=== PATIENT | female | born 1970 | race African-American/Black ===

== ENCOUNTER 2023-05-05 16:31 | Emergency (ER) | payer BC ==
[~2023-05-05] VITALS: Ht 154.9 cm; Wt 67.1 kg
[2023-05-05 16:45] VITALS: BP_SYST 124; PULSE 74; RESP 18; TEMP 97.9; O2SAT 98
[2023-05-05 17:52] LABS: BASOPHILS # (AUTO) 0.1 K/uL (0.0-0.2); BASOPHILS % (AUTO) 0.7 % (0.0-2.0); EOSINOPHILS % (AUTO) 0.3 % (0.0-4.0); HEMATOCRIT 36.2 % (36-48); HEMOGLOBIN 12.1 g/dL (12.0-16.0); LYMPHOCYTES # (AUTO) 1.4 K/uL (1.0-5.5); LYMPHOCYTES % (AUTO) 15.8 % (20.5-51.5); MEAN CORPUSCULAR HEMOGLOBIN 28 pg (27-31); MEAN CORPUSCULAR HGB CONC 33 % (32-36); MEAN CORPUSCULAR VOLUME 84 fL (79.0-98.0); MONOCYTES # (AUTO) 0.7 K/uL (0.0-1.0); NEUTROPHILS # (AUTO) 6.6 K/uL (1.8-7.7); NEUTROPHILS % (AUTO) 75.2 % (40.0-70.0); PLATELET COUNT (AUTO) 440 K/uL (130-430); RED BLOOD CELL COUNT(AUTO) 4.31 MIL/uL (4.2-6.2); RED CELL DISTRIBUTION WIDTH 16.4 % (9.0-15.0); WHITE BLOOD COUNT (AUTO) 8.8 K/uL (4.8-10.8)
[2023-05-05 17:56] LABS: CALCIUM 9.2 mg/dL (8.4-11.0); CREATININE 0.67 mg/dL (0.55-1.30); POTASSIUM 3.7 mmol/L (3.5-5.1)
[2023-05-05 17:59] LABS: ERYTHROCYTE SEDIMENTATION RATE 62 MM/HR (0-20)
[2023-05-05] MEDS: HYDROcodone/ACETAMIN 10-325 MG TAB PO ONE (18:00)
[2023-05-05] MEDS: KETOROLAC TROMETHAMINE 60 MG/2 ML VIAL IM ONE (18:00)
[2023-05-05 19:12] LABS: PROTHROMBIN TIME 9.9 SECS (9.5-12.5)
[2023-05-05] MEDS ORDERED: IBUP-1969 PO (19:15)
[2023-05-05] MEDS ORDERED: HYDR-3917 PO (19:15)
[2023-05-05 19:34] VITALS: BP_SYST 124; PULSE 81; RESP 18; TEMP 98.4; O2SAT 99
== END 2023-05-05 19:25 | disposition home or self-care (01) ==
LOC: SED 16:31
DX: M54.2 Cervicalgia (principal); R51.9 Headache, unspecified; R42 Dizziness and giddiness; R79.1 Abnormal coagulation profile; Z87.898 Personal history of other specified conditions; Z88.8 Allergy status to other drugs, medicaments and biological substances
CPT/HCPCS: 99285; 70450; 80048; 85025; 85610; 85651; 85730; 36415; 72125; 76376; 96372; 82397; J1885